=== PATIENT | female | born 1990 | race Caucasian/White ===

== ENCOUNTER → 2023-11-18 11:08 | Outpatient (REF) | payer BC, SELFPAY ==
[2023-11-18 12:15] LABS: % Eosinophils 0.8 % (0-6); % Lymphocytes 22.5 % (20.5-51.1); % Monocytes 9.2 % (1.7-9.3); % Neutrophils 66.5 % (42.2-75.2); Absolute Basophils 0.1 10^3/uL (0-0.2); Absolute Lymphocytes 1.1 10^3/uL (1.2-3.4); Absolute Monocytes 0.5 10^3/uL (0.1-0.6); Absolute Neutrophils 3.3 10^3/uL (1.4-6.5); Hematocrit 35.8 % (37.0-47.0); Mean Corp Hgb Conc. 33.5 g/dL (33.0-37.0); Mean Corpuscular Hgb 31.1 pg (27.0-31.0); Mean Corpuscular Volume 92.7 fL (81.0-99.0); Mean Platelet Volume 9.7 fL (7.4-10.4); Nucleated Red Blood Cells % 0 %; Platelet Count 230 10^3/uL (130-400); Red Blood Cell Count 3.86 10^6/uL (4.20-5.40); Red Cell Dist. Width 12.5 % (11.5-14.5); White Blood Cell Count 4.9 10^3/uL (4.8-10.8)
[2023-11-18 12:37] LABS: ALT (SGPT) 14 U/L (0-35); AST (SGOT) 26 U/L (14-36); Albumin 4.6 g/dl (3.5-5.0); Alkaline Phosphatase 38 U/L (38-126); Blood Urea Nitrogen 17 mg/dl (7-17); Calcium 9.2 mg/dl (8.4-10.2); Carbon Dioxide 26 mmol/L (22-30); Chloride 101 mmol/L (98-107); Glucose 100 mg/dl (70-99); Iron 86 ug/dl (37-170); Potassium 4.2 mmol/L (3.5-5.1); Sodium 132 mmol/L (135-145); Total Bilirubin 0.4 mg/dl (0.2-1.3); Total Cholesterol 208 mg/dl (50-199); Total Protein 7.4 g/dl (6.3-8.2); Triglyceride 49 mg/dl (10-149); Very Low Density Lipoprotein 9 mg/dl (0-30); eGFR > 60.00
[2023-11-18 12:40] LABS: HDL Cholesterol 80 mg/dl; LDL Cholesterol, Calculated 119 mg/dl
[2023-11-18 13:07] LABS: TSH Reflex To Free T4 0.99 uIU/ml (0.47-4.68)
== END ==
LOC: REG 11:08
PROVIDERS: ATTENDING PHYSICIAN Nurse Practitioner Adult Health
DX: R73.01 Impaired fasting glucose (principal); D50.8 Other iron deficiency anemias; Z00.00 Encounter for general adult medical examination without abnormal findings; Z13.220 Encounter for screening for lipoid disorders; Z13.29 Encounter for screening for other suspected endocrine disorder
CPT/HCPCS: 36415; 80053; 80061; 83036; 83540; 84443; 85025

== ENCOUNTER → 2023-11-23 12:20 | Outpatient (REF) | payer BC, SELFPAY ==
[2023-11-23 14:08] LABS: % Basophils 0.7 % (0-2); % Eosinophils 0.5 % (0-6); % Immature Granulocytes 0.2 % (0-0.5); % Lymphocytes 25.8 % (20.5-51.1); % Monocytes 10.2 % (1.7-9.3); % Neutrophils 62.6 % (42.2-75.2); Absolute Lymphocytes 1.4 10^3/uL (1.2-3.4); Absolute Monocytes 0.6 10^3/uL (0.1-0.6); Absolute Neutrophils 3.4 10^3/uL (1.4-6.5); Hematocrit 37.3 % (37.0-47.0); Hemoglobin 12.3 g/dL (12.0-16.0); Mean Corpuscular Hgb 30.9 pg (27.0-31.0); Mean Corpuscular Volume 93.7 fL (81.0-99.0); Mean Platelet Volume 9.8 fL (7.4-10.4); Nucleated Red Blood Cells % 0 %; Platelet Count 260 10^3/uL (130-400); Red Blood Cell Count 3.98 10^6/uL (4.20-5.40); Red Cell Dist. Width 12.5 % (11.5-14.5); White Blood Cell Count 5.5 10^3/uL (4.8-10.8)
[2023-11-23 14:39] LABS: Blood Urea Nitrogen 19 mg/dl (7-17); Calcium 9.5 mg/dl (8.4-10.2); Carbon Dioxide 26 mmol/L (22-30); Chloride 101 mmol/L (98-107); Glucose 80 mg/dl (70-99); Iron 80 ug/dl (37-170); Potassium 4.6 mmol/L (3.5-5.1); Sodium 133 mmol/L (135-145); eGFR > 60.00
[2023-11-23 14:48] LABS: Percent Saturation 20 % (20-50); Total Iron Binding Capacity 387 ug/dl (265-497)
[2023-11-23 15:41] LABS: Ferritin 6.1 ng/ml (6.24-137)
== END ==
LOC: RAD 12:20
PROVIDERS: ATTENDING PHYSICIAN Nurse Practitioner Adult Health
DX: R07.81 Pleurodynia (principal); E87.1 Hypo-osmolality and hyponatremia; Z00.00 Encounter for general adult medical examination without abnormal findings; D50.8 Other iron deficiency anemias
CPT/HCPCS: 36415; 71101; 80048; 82728; 83540; 83550; 85025

== ENCOUNTER → 2023-11-30 | Outpatient (REF) | payer BC, SELFPAY | LOC: DHSLP | PROVIDERS: ATTENDING PHYSICIAN Nurse Practitioner Adult Health | DX: G47.30 Sleep apnea, unspecified (principal); R06.83 Snoring | CPT/HCPCS: 95800 ==

== ENCOUNTER → 2023-12-01 07:12 | Outpatient (REF) | payer BC, SELFPAY | LOC: RAD 07:12 | PROVIDERS: ATTENDING PHYSICIAN Nurse Practitioner Adult Health | DX: R93.89 Abnormal findings on diagnostic imaging of other specified body structures (principal) | CPT/HCPCS: 71046 ==

== ENCOUNTER → 2024-02-19 06:10 | Outpatient (REF) | payer BC, SELFPAY ==
[2024-02-19 07:15] LABS: Blood Urea Nitrogen 19 mg/dl (7-17); Calcium 9.2 mg/dl (8.4-10.2); Carbon Dioxide 24 mmol/L (22-30); Chloride 102 mmol/L (98-107); Glucose 119 mg/dl (70-99); Potassium 3.9 mmol/L (3.5-5.1); Sodium 137 mmol/L (135-145); eGFR > 60.00
== END ==
LOC: REG 06:10
PROVIDERS: ATTENDING PHYSICIAN Nurse Practitioner Adult Health
DX: D50.8 Other iron deficiency anemias (principal); R73.01 Impaired fasting glucose
CPT/HCPCS: 80048

== ENCOUNTER 2024-09-10 21:16 | Inpatient (IN) | payer BC, SELFPAY ==
[2024-09-10 11:54] VITALS: BP 145/89
[2024-09-10 12:20] LABS: % Basophils 0.5 % (0-2); % Eosinophils 0.5 % (0-6); % Immature Granulocytes 0.3 % (0-0.5); % Lymphocytes 28.5 % (20.5-51.1); % Monocytes 11.8 % (1.7-9.3); % Neutrophils 58.4 % (42.2-75.2); Absolute Lymphocytes 1.1 10^3/uL (1.2-3.4); Absolute Monocytes 0.5 10^3/uL (0.1-0.6); Absolute Neutrophils 2.3 10^3/uL (1.4-6.5); Hematocrit 38.6 % (37.0-47.0); Mean Corp Hgb Conc. 33.7 g/dL (33.0-37.0); Mean Corpuscular Hgb 30.7 pg (27.0-31.0); Mean Platelet Volume 9.3 fL (7.4-10.4); Nucleated Red Blood Cells % 0 %; Platelet Count 231 10^3/uL (130-400); Red Blood Cell Count 4.24 10^6/uL (4.20-5.40); Red Cell Dist. Width 12.4 % (11.5-14.5)
[2024-09-10 12:29] LABS: HCG, Serum Qualitative Screen Negative
[2024-09-10 12:36] LABS: ALT (SGPT) 18 U/L (0-35); AST (SGOT) 29 U/L (14-36); Albumin 4.8 g/dl (3.5-5.0); Alkaline Phosphatase 37 U/L (38-126); Blood Urea Nitrogen 16 mg/dl (7-17); Calcium 9.2 mg/dl (8.4-10.2); Carbon Dioxide 24 mmol/L (22-30); Chloride 100 mmol/L (98-107); Glucose 94 mg/dl (70-99); Lipase 106 U/L (23-300); Potassium 3.6 mmol/L (3.5-5.1); Sodium 137 mmol/L (135-145); Total Bilirubin 0.6 mg/dl (0.2-1.3); Total Protein 7.5 g/dl (6.3-8.2); eGFR > 60.00
[2024-09-10 12:45] LABS: Troponin I < 0.012 ng/ml
--- NOTE | 2024-09-10 13:16 | ED.GENMED ---
History of Present Illness
General
Chief Complaint: Abdominal Symptoms
Source: patient
Exam Limitations: none
Time Seen by Provider: 09/10/24 13:12
Nursing documentation reviewed up to this point in time: agreed with
History of Present Illness
History of Present Illness:
34 yr old female presents to the ED with c/o of epigastric pain. Pt reports for the past 4 days she has had nausea and vomiting after eating. She c/o of pain epigastric that radiates to back between shoulder blades. d
Pt denies any fever/chills/body aches, cold symptoms. Patient does report that she does have a history of reflux normally and put herself on omeprazole [id number].
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
She drinks alcohol about once a month , denies smoking.
She denies any shortness of breath chest pain. She is not on control.
Review of Systems
Review of Systems
Allergies reviewed?: Yes
All Other Systems: ROS reviewed and negative except as documented in HPI and ROS
Constitutional: Reports no symptoms; Denies fever, fatigue or chills
ABD/GI: Reports nausea, vomiting and other (epigastric tenderness); Denies diarrhea
Musculoskeletal: Reports no symptoms
Skin: Reports no symptoms
Neurological: Reports no symptoms
Psychiatric: Reports no symptoms
Phy Exam
General Physical Exam
General Presentation: no apparent distress
General age: appears stated age
General Skin: warm and dry
General Habitus: normal
General Mental: alert
General Hydration: appears well hydrated
Gastrointestinal Exam
Gastrointestinal Exam: soft and other (+ epigastric tenderness)
Neurological Exam
Neurological Exam: alert and oriented x3
Musculoskeletal Exam
Musculoskeletal Exam: full ROM
Skin Exam
Skin Exam: normal color and warm/dry
Psychiatric Exam
Psychiatric Exam: normal mood/affect
Course
Orders/Labs/Results
Orders:
Orders
09/10/24 11:52
EKG [Electrocardiogram (*1)] Urgent
Reason for Study: Palpitations
EKG- Treatment ONCE
09/10/24 11:58
Test Result ONCE
09/10/24 12:06
Complete Blood Count/With Diff Urgent
Comprehensive Metabolic Panel Urgent
HCG, Serum Qualitative Screen Urgent
Lipase Urgent
Troponin I Urgent
09/10/24 13:25
COVID-19 Antigen Urgent
Source: Nasal Swab
Influenza A+B Rapid Molecular Urgent
PAULA Source: Nasal Swab
Specimen Description:
09/10/24 13:32
0.9% Sodium Chloride 1000 ml [Nss] 1,000 ml IV BOLUS
Famotidine [Pepcid] 20 mg IV NOW STA
Ondansetron Injectable [Zofran] 4 mg IV NOW STA
09/10/24 13:39
US Abdomen Complete/Upper Urgent
Comment:
Reason For Exam: epigastric pain
09/10/24 15:42
CT Abd/pel W Iv And Oral Contr Urgent
Comment:
Reason For Exam: upper abd pain
Iohexol [Omnipaque] See Protocol PO NOW STA
Abnormal Lab Results
09/10/24
12:06
WBC 4.0 L 10^3/uL
(4.8-10.8)
Absolute Lymphs (auto) 1.1 L 10^3/uL
(1.2-3.4)
Monocytes % 11.8 H %
(1.7-9.3)
Alkaline Phosphatase 37 L U/L
(38-126)
09/10/24 12:06
09/10/24 12:06
Vital Signs
Initial and Last Documented VS:
Initial Vital Signs
Temp Pulse Resp BP Pulse Ox
98.0 F 97 16 145/89 99
09/10/24 11:54 09/10/24 11:54 09/10/24 11:54 09/10/24 11:54 09/10/24 11:54
Last Documented Vital Signs
Temp Pulse Resp BP Pulse Ox
98.0 F 83 18 140/86 99
09/10/24 11:54 09/10/24 17:13 09/10/24 17:13 09/10/24 17:13 09/10/24 17:13
MDM/Problems Addressed
Differential Diagnosis Includes:
Not limited to peptic ulcer, gastritis, GERD, less likely pancreatitis less likely obstruction less likely cholecystitis
MDM/Problems Addressed:
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 She reports pain is epigastric rating to back. She only vomits when eating. CAT scan shows jejunojejunal intussusception w/ in left mid
abdomen . Patient received fluids Pepcid and Zofran here in the ER. Case discussed with surgery Dr. Herrera who does recommend to admit for monitoring for monitoring and he will evaluate tomorrow.
Patient with no further vomiting here in the ER stable vital signs.
Afebrile nml wbc
*Radiology
Radiology exam reviewed: radiology read reviewed
*Pulse Oximetry
Patient hypoxic: no
*Critical Care Note
Total Time (30-74mins, 75-104mins- exclusive of procedures): Not Applicable
Patient Management
Discussion with other providers: Terminal Block Assembler (DR Herrera )
ED Attending Note
-
Portions of this chart may have been created with voice recognition software.� Occasional wrong word or��sound alike� substitutions may have occurred due to the inherent limitations of voice recognition software.
Discharge Plan
Departure
Patient Disposition: Admit
Date of Disposition: 09/10/24
Time of Disposition: 19:37
Admit to: Med/Surg
Admit to doctor: hospitalist
Presentation/result/management discussed w/ accepting MD/DO: Hospitalist
Patient with high blood pressure during this ER visit?: Yes
Condition: Fair
Covid-19: Not Applicable
Discharge Problem:
Intussusception of jejunum
Referrals:
Megha Sweeney CRNP [Family Provider] -
Interventions
Interventions:
*Risk Screen - Suicide Last Done: 09/10/24 11:54
*General Assessment Last Done: 09/10/24 11:54
*Neglect/Abuse Screening Last Done: 09/10/24 11:54
*ED COVID-19 Vaccine History Last Done: 09/10/24 11:54
FR-Egdycr-Poflvnjdxh Assessment Last Done: 09/10/24 13:04
Discharge Date and Time
Print Language: TURKISH
[2024-09-10] MEDS: NSS 1000 IV ×2 (13:50→22:33)
[2024-09-10] MEDS: PEPCID 20 MG IV (14:02)
[2024-09-10] MEDS: ZOFRAN 4 MG IV (14:02)
[2024-09-10 14:14] LABS: COVID-19 Antigen Negative (Negative)
[2024-09-10 14:59] VITALS: BMI 22.3
[2024-09-10] MEDS: OMNIPAQUE 50 ML PO (16:16)
[2024-09-10 17:13] VITALS: BP 140/86
--- NOTE | 2024-09-10 19:59 | HPS.HSE ---
Family Physician
-
Family Physician: RL Eugene
Chief Complaint
-
abdominal pain
History of Present Illness
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 She has had nausea and vomiting
after eating. She denies any fevers or chills.
She drinks alcohol once a month. Denies smoking.
Medical History
Past Medical History
Past Medical History: Reports Other (GERD, anxiety/depression, migraines)
Past Surgical History: Reports None
Social History
Tobacco: Non-smoker
Alcohol: None
Drug: None
Family History
Family History: Not pertinent
Allergies / Home Medications
Allergies reflects when Allergies were last updated in [employer].
Home Medications with original date entered in [employer]
Allergy/Medication List:
Allergies
Allergy/AdvReac Type Severity Reaction Status Date / Time
No Known Allergies Allergy Verified 09/10/24 11:57
Home Medications
calcium carbonate (Tums) 200 mg PO QIDPRN PRN stomach upset 09/10/24
fluoxetine 40 mg capsule 40 mg PO HS 09/10/24
lorazepam 0.5 mg tablet 0.5 mg PO HSPRN PRN sleep 09/10/24
Review of Systems
-
History Source: Patient
A 12 point ROS was completed and negative except as noted: Yes
Constitutional: Reports No Symptoms
EENT: Reports No Symptoms
Respiratory: Reports No Symptoms
Cardiac: Reports No Symptoms
Abdomen/GI: Reports See HPI
: Reports No Symptoms
Musculoskeletal: Reports No Symptoms
Skin: Reports No Symptoms
Neurological: Reports No Symptoms
Endocrine: Reports No Symptoms
Hematologic/Lymphatic: Reports No Symptoms
Psych: Reports No Symptoms
Physical Exam
Vital Signs
Vital Signs
Temp Pulse Resp BP Pulse Ox
98.0 F 83 18 140/86 99
09/10/24 11:54 09/10/24 17:13 09/10/24 17:13 09/10/24 17:13 09/10/24 17:13
Physical Exam
General: Well Developed, Well Nourished and No Apparent Distress
HEENT: NormoCephalic, Moist mucous membranes and Atraumatic
Respiratory: Clear
Cardiac: S1/S2 and Regular Rhythm; No Murmur or Rub
GI: Soft, Non Tender, Non Distended and Normal Bowel Sounds; No Organomegaly
Rectal: Deferred by Provider
Musculoskeletal: No Clubbing, No Cyanosis and No Edema
Skin: No Rash
Neuro: Nonfocal/grossly intact
Laboratory Results
-
09/10/24 12:06
09/10/24 12:06
Laboratory Results
Total Bilirubin 0.6 mg/dl (0.2-1.3) 09/10/24 12:06
AST 29 U/L (14-36) 09/10/24 12:06
ALT 18 U/L (0-35) 09/10/24 12:06
Alkaline Phosphatase 37 U/L (38-126) L 09/10/24 12:06
Troponin I < 0.012 ng/ml 09/10/24 12:06
Lipase 106 U/L (23-300) 09/10/24 12:06
Data Reviewed
-
Lab Data: Labs Reviewed by me
Old Records: Reviewed
Impression/Plan
-
IMPRESSION:
PLAN:
# Jejunojejunal intussusception
-CT abdomen pelvis shows jejunojejunal intussusception within the left mid abdomen without obstruction or discrete lead point
-Abdominal ultrasound normal
-N.p.o.
-IV fluids
-Dilaudid, Zofran
-General Surgery consulted
GERD
Anxiety/depression
-Hold fluoxetine, Ativan
Full code
DVT prophylaxis�SCDs
N.p.o.
[2024-09-10 22:13] VITALS: BMI 22.3
[2024-09-10 22:23] VITALS: BP 122/71
[2024-09-11] VITALS (14 sets, daily range): BP systolic 94–121; BP diastolic 56–83
[2024-09-11 07:57] LABS: Hematocrit 36.2 % (37.0-47.0); Hemoglobin 12.1 g/dL (12.0-16.0); Mean Corp Hgb Conc. 33.4 g/dL (33.0-37.0); Mean Corpuscular Hgb 30.6 pg (27.0-31.0); Mean Corpuscular Volume 91.6 fL (81.0-99.0); Mean Platelet Volume 9.5 fL (7.4-10.4); Platelet Count 209 10^3/uL (130-400); Red Blood Cell Count 3.95 10^6/uL (4.20-5.40); Red Cell Dist. Width 12.1 % (11.5-14.5); White Blood Cell Count 4.5 10^3/uL (4.8-10.8)
[2024-09-11 08:18] LABS: ALT (SGPT) 14 U/L (0-35); AST (SGOT) 23 U/L (14-36); Alkaline Phosphatase 35 U/L (38-126); Blood Urea Nitrogen 12 mg/dl (7-17); Calcium 8.8 mg/dl (8.4-10.2); Carbon Dioxide 27 mmol/L (22-30); Chloride 104 mmol/L (98-107); Estimated Creatinine Clearance 94 ml/min; Glucose 75 mg/dl (70-99); Potassium 4.2 mmol/L (3.5-5.1); Sodium 139 mmol/L (135-145); Total Bilirubin 0.5 mg/dl (0.2-1.3); Total Protein 6.4 g/dl (6.3-8.2); eGFR > 60.00
[2024-09-11 08:42] LABS: Absolute Neutrophils -Man Diff 2.2 10^3/uL (1.4-6.5); Band Neutrophils 0 % (0-3); Segmented Neutrophils 51 % (42-75)
[2024-09-11] MEDS: NSS 1000 IV ×2 (08:42→21:49)
[2024-09-11 08:43] LABS: Atypical Lymphocytes 6 %; Eosinophils 1 % (0-6); Lymphocytes 32 % (20-51); Monocytes 10 % (2-9); Normal RBC Morphology Yes; Platelets Checked Yes; Total Cells Counted 100
--- NOTE | 2024-09-11 09:06 | CON.GS ---
Consultation
-
Requesting Provider: Purvi
Performing Provider: Luma
Reason for Consultation: Abd pain
Medical History
-
Chief Complaint: Abd pain
History of Present Illness:
34F with second episode of epigastric pain that is episodic, with radiation to back and a/w n/v. She reports several days of this pain, beginning a week ago with some improvement over the wekend but recurring pain after eating pizza. Pain came back
abut an hour after eating. Pain is intermittent. Denies f/c. Denies changes to stool/urine. Prior similar episode about 1 year ago. US at that time showed sludge.
Past Medical History
Past Medical History: GERD and Psychiatric
Past Surgical History: Reviewed & Noncontributory
Social History
Tobacco: Non-Smoker
Alcohol: None
Drug: None
Personal: Other (engaged)
Living: With Family
Employment: Employed
Family History
Family History: Reviewed & Noncontributory
Allergies / Home Medications
Allergy/AdvReac Type Severity Reaction Status Date / Time
No Known Allergies Allergy Verified 09/10/24 11:57
�Medication �Instructions �Recorded �Confirmed �Type
calcium carbonate (Tums) 200 mg PO QIDPRN PRN stomach upset 09/10/24 09/10/24 History
fluoxetine 40 mg capsule 40 mg PO HS 09/10/24 09/10/24 History
lorazepam 0.5 mg tablet 0.5 mg PO HSPRN PRN sleep 09/10/24 09/10/24 History
Review of Systems
-
A 10 point review of systems was completed, and was negative except as per HPI.
Physical Exam
Vital Signs
Temp Pulse Resp BP Pulse Ox
98 F 85 16 106/68 97
09/11/24 08:01 09/11/24 08:01 09/11/24 08:01 09/11/24 08:01 09/11/24 08:01
09/10/24 09/11/24 09/12/24
06:59 06:59 06:59
Actual Weight 62.55 kg
Body Mass Index (BMI) 22.3
Lab Results
09/11/24 06:28
09/11/24 06:28
WBC 4.5 10^3/uL (4.8-10.8) L 09/11/24 06:28
Hgb 12.1 g/dL (12.0-16.0) 09/11/24:28
Hct 36.2 % (37.0-47.0) L 09/11/24:
Plt Count 209 10^3/uL (130-400) 09/11/24:28
Abs Immat Gran (auto) 0.0 10^3/uL (0-0.05) 09/10/24 12:06
Neutrophils % 58.4 % (42.2-75.2) 09/10/24 12:06
Physical Exam
General: Well Developed, Well Nourished and No Apparent Distress
HEENT: Normocephalic and Anicteric
GI: Soft, Non Tender and Non Distended
Skin: Warm and Dry
Neuro: AO x 3
Psych: Calm
Data Reviewed
-
CT Scan: Image Personally Visualized and interpreted, Report Reviewed by me and Discussed with Patient
Ultrasound: Image Personally Visualized and interpreted, Report Reviewed by me and Discussed with Patient
Labs: Labs Reviewed by me and Discussed with Patient
Old Records: Reviewed
Assessment / Plan
-
34F with biliary colic
AFVSS, symptoms have resolved
Labs unremarkable
CT with sb intussusception likely an incidental findig
US without biliary abnormality, pt reports a prior US with sludge
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 I recommended CCY. Risks, benefits, complications and alternatives were discussed including but not limited to bleeding, infection, injury to intra-abdominal
structures, need for open surgery, need for further procedures. She is reluctant to proceed with surgery after a bad experience at OSH 2 years ago during an episode of pre-eclampsia when she received Mg and became unresponsive.
Discussed low fat diet and outpatient elective CCY if she wishes.
Plan for PO challenge and home if tolerates.
[2024-09-11] MEDS: BENADRYL 50 MG PO (10:24)
[2024-09-11] MEDS: ATIVAN 1 MG PO (10:24)
--- NOTE | 2024-09-11 11:28 | W.PN.UPDATE ---
Update Note
Progress Note Update
Pt changed her mind. She would like to proceed with CCY today,. She has not eaten or drank anything. Proceed to OR when room is available. Transfer to Surgery service.
--- NOTE | 2024-09-11 12:10 | OR.RPT ---
Operative Report
Operative Report
Primary Surgeon: Purvi
Assisting: Ingrid GALLOWAY
Pre-op Diagnosis: Biliary colic
Post-op Diagnosis: Chronic calculous cholecystitis
Procedure Performed: Robotic cholecystectomy
Anesthesia Type: GETA
Specimen / Cultures: Gallbladder
Estimated Blood Loss: 1cc
Complications: None immediate
Operative Findings: Softly distended gallbladder with mild wall thickening and fibrosis
Date of Surgery:� 09/11/24
Indications: This 34F developed biliary colic. Ultrasound imaging showed a small amount of sludge in the gallbladder. Laparoscopic cholecystectomy with robotic assist was elected.
Description of procedure: The patient was placed on the operating table in the supine position. General anesthesia was induced. A time-out was completed verifying correct patient, procedure, site, positioning, and special equipment prior to
beginning this procedure. An orogastric tube was placed. The abdomen was prepped and draped in the usual sterile fashion. A stab incision was made in left upper quadrant and the Veress needle was inserted. Proper position was confirmed by aspiration
and saline meniscus test. The abdomen was insufflated with carbon dioxide to a pressure of 12mmHg. The patient tolerated insufflation well.
A 8mm trocar was then inserted above the umbilicus through the existing hernia defect. The laparoscope was inserted and the abdomen inspected. No injuries from initial trocar placement or Veress needle insertion were noted. Additional 8mm trocars
were then inserted in the following locations: two in the right lower quadrant and to the left of the umbilicus and just above. The abdomen was inspected and no abnormalities were found. The table was placed in the reverse Trendelenburg position
with the right side up. The dome of the gallbladder was grasped with an atraumatic grasper and retracted over the dome of the liver. The infundibulum was then grasped with an atraumatic grasper and retracted toward the right lower quadrant. This
maneuver exposed Calot�s triangle. The mildly fibrotic visceral peritoneum overlying the gallbladder infundibulum was then incised and the cystic duct and cystic artery identified and circumferentially dissected so that a clear view of the liver was
achieved through a window between the cystic duct an cystic artery. At this time, the only two structures going into the gallbladder were the cystic artery and cystic duct. The common duct was identified with ICG and protected.
The cystic duct was then doubly clipped and divided. The cystic artery was controlled with bipolar and divided. The gallbladder was then dissected from its peritoneal attachments by electrocautery. The posterior plane was mildly fibrotic. The
gallbladder was removed using an endoscopic retrieval bag placed through the umbilical port. The gallbladder was passed off the table as a specimen. The gallbladder fossa was closely inspected. There was no evidence of bleeding from the gallbladder
fossa or cystic artery or leakage of the bile from the cystic duct stump. The umbilical trocar site was closed at the fascial level with 2-0 PDS. Secondary trocars were removed under direct vision and noted to be hemostatic. The abdomen was allowed
to collapse. The skin was closed with subcuticular sutures of 4-0 monocryl and topical skin adhesive. The orogastric tube was removed.
The patient tolerated the procedure well and was taken to the postanesthesia care unit in stable condition.
--- NOTE | 2024-09-11 12:12 | W.DS.TRANS ---
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
-
Discharge Instructions:
Discharge Diagnosis/Procedures Robotic cholecystectomy
Diet No restrictions
Activity No strenuous activity
Driving Restrictions No driving for 24 hours
Bathing Restrictions OK to Shower
Wound Care Allow skin glue to flake off on its own
Instructions: Cholecystectomy - Discharge instructions
Stand-Alone Forms:
Changes to Home Medications: No
Discharge Medications:
DC Medications w/original date entered in [employer]
calcium carbonate (Tums) 200 mg PO QIDPRN PRN stomach upset 09/10/24
fluoxetine 40 mg capsule 40 mg PO HS 09/10/24
lorazepam 0.5 mg tablet 0.5 mg PO HSPRN PRN sleep 09/10/24
oxycodone 5 mg tablet 5 - 10 mg (1 - 2 x 5 mg) PO Q4HPRN PRN moderate to severe pain #20 tabs 09/11/24
Home Medication Changes
Pending Results: No
[2024-09-11] MEDS: ZOFRAN 4 MG IV (12:52)
[2024-09-11] MEDS: DILAUDID 0.5 MG IV ×4 (12:53→21:49)
--- NOTE | 2024-09-11 15:51 | CM ---
Patient seen at bedside with mother in law to be also present. Patient stated that she lives with her fiance who is sick at this time. Patient stated that she would be able to be in the same home and not be exposed to fiarik's illness. Patient has a
ride for when physician indicates that she can go and she uses [facility], [facility] and the [facility] in [place]. Patient indicated that she has no needs at this time for VN or DME. CM will continue to follow for discharge
planning needs.
Plan; home with no needs at this time
--- NOTE | 2024-09-11 17:30 | PTCARENOTE ---
Pt beginning to eat Regular diet as ordered. Pt still with significant abdominal pain post-op requiring IV pain medication as ordered PRN. Will keep pt overnight due to uncontrolled pain.
[2024-09-11] MEDS: MYLICON 80 MG PO (22:03)
[2024-09-12 03:01] VITALS: BP 107/66
[2024-09-12] MEDS: NSS 1000 IV (06:05)
[2024-09-12 07:47] VITALS: BP 99/67
--- NOTE | 2024-09-12 08:18 | W.PN.SURGUPD ---
Surgical Update
Surgical Update
Patient seen and examined.
Reports postoperative incisional pain but controlled.
Tolerated p.o. intake, no nausea today.
AFVSS
ABD: Soft, nondistended, mild tenderness palpation at incision sites. Incision sites with glue dressings.
A/P: 34-year-old female POD #1 status post RAL cholecystectomy
DC home, instructions reviewed
--- NOTE | 2024-09-12 08:19 | W.DS.TRANS ---
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
-
Discharge Instructions:
Discharge Diagnosis/Procedures Robotic cholecystectomy
Diet Low Fat,As tolerated
Activity No strenuous activity
Driving Restrictions No driving for 24 hours
Bathing Restrictions OK to Shower
Wound Care Allow skin glue to flake off on its own
Instructions: Cholecystectomy - Discharge instructions
Stand-Alone Forms:
Changes to Home Medications: No
Discharge Medications:
DC Medications w/original date entered in [employer]
calcium carbonate (Tums) 200 mg PO QIDPRN PRN stomach upset 09/10/24
fluoxetine 40 mg capsule 40 mg PO HS 09/10/24
lorazepam 0.5 mg tablet 0.5 mg PO HSPRN PRN sleep 09/10/24
oxycodone 5 mg tablet 5 - 10 mg (1 - 2 x 5 mg) PO Q4HPRN PRN moderate to severe pain #20 tabs 09/11/24
Home Medication Changes
Pending Results: No
[2024-09-12] MEDS: DILAUDID 0.5 MG IV (11:00)
[2024-09-12] MEDS: MYLICON 80 MG PO (11:01)
[2024-09-12] MEDS: ZOFRAN 4 MG IV (11:01)
[2024-09-12 12:28] VITALS: BP 130/88
--- NOTE | 2024-09-12 13:29 | PN.CDI ---
CDI
- -
CDI:
Physician Documentation Request
Admit Date: 09/10/24 21:16
Dear Doctor Purvi,
The diagnosis of Jejunojejunal intussusception was documented in ED record and on H&P but is not consistently noted in subsequent documentation.
Please clarify the following:
____ - Jejunojejunal intussusception was present.
____ - Jejunojejunal intussusception was ruled out
____ - Other
Use of terms such as suspected, likely, concern for, or probable (associated with a specific diagnosis that is being evaluated, monitored, or treated as if it exists) are acceptable and can be coded in the inpatient setting, when documented at the
time of discharge.
Thank you,
Virginie Swift RN, BSN
CDI Specialist
tiger text
Please use your independent medical judgment in providing your response.
== END 2024-09-12 12:48 | disposition home or self-care (01) | DRG 418 ==
LOC: 2 NORTH 21:16
PROVIDERS: Emergency Medicine; Nurse Practitioner; ADMITTING PHYSICIAN Hospitalist; ATTENDING PHYSICIAN Surgery; EMERGENCY PHYSICIAN Student in an Organized Health Care Education/Training Program; FAMILY PHYSICIAN Nurse Practitioner Adult Health
PROC: 0FT44ZZ Resection of Gallbladder, Percutaneous Endoscopic Approach (ICD-10-PCS; 2024-09-11)
PROC: 8E0W4CZ Robotic Assisted Procedure of Trunk Region, Percutaneous Endoscopic Approach (ICD-10-PCS; 2024-09-11)
DX: K80.12 Calculus of gallbladder with acute and chronic cholecystitis without obstruction (principal); K56.1 Intussusception; K21.9 Gastro-esophageal reflux disease without esophagitis; F41.9 Anxiety disorder, unspecified; F32.A Depression, unspecified; G43.909 Migraine, unspecified, not intractable, without status migrainosus; Z11.52 Encounter for screening for COVID-19
CPT/HCPCS: 88304; 74177; 76700; 80053; 83690; 84484; 84703; 85025; 87502; 87811; 93005; 96361; 96374; 96375; 99285; Q9967

== ENCOUNTER 2024-09-27 19:31 | Emergency (ER) | payer BC, SELFPAY ==
[2024-09-27 19:32] VITALS: BMI 22.5
[2024-09-27 19:33] VITALS: BP 156/96
[2024-09-27 20:16] LABS: % Basophils 1.1 % (0-2); % Eosinophils 1.2 % (0-6); % Immature Granulocytes 0.2 % (0-0.5); % Lymphocytes 19.8 % (20.5-51.1); % Monocytes 8.8 % (1.7-9.3); % Neutrophils 68.9 % (42.2-75.2); Absolute Basophils 0.1 10^3/uL (0-0.2); Absolute Eosinophils 0.1 10^3/uL (0-0.7); Absolute Lymphocytes 1.3 10^3/uL (1.2-3.4); Absolute Monocytes 0.6 10^3/uL (0.1-0.6); Absolute Neutrophils 4.6 10^3/uL (1.4-6.5); Hematocrit 36.6 % (37.0-47.0); Hemoglobin 12.5 g/dL (12.0-16.0); Mean Corp Hgb Conc. 34.2 g/dL (33.0-37.0); Mean Corpuscular Hgb 30.6 pg (27.0-31.0); Mean Corpuscular Volume 89.5 fL (81.0-99.0); Mean Platelet Volume 8.9 fL (7.4-10.4); Nucleated Red Blood Cells % 0 %; Platelet Count 395 10^3/uL (130-400); Red Blood Cell Count 4.09 10^6/uL (4.20-5.40); Red Cell Dist. Width 12.5 % (11.5-14.5); White Blood Cell Count 6.6 10^3/uL (4.8-10.8)
[2024-09-27 20:30] LABS: HCG, Serum Qualitative Screen Negative
[2024-09-27 20:32] LABS: ALT (SGPT) 26 U/L (0-35); AST (SGOT) 49 U/L (14-36); Albumin 5.1 g/dl (3.5-5.0); Alkaline Phosphatase 45 U/L (38-126); Blood Urea Nitrogen 12 mg/dl (7-17); Calcium 9.6 mg/dl (8.4-10.2); Carbon Dioxide 21 mmol/L (22-30); Chloride 102 mmol/L (98-107); Glucose 91 mg/dl (70-99); Potassium 3.3 mmol/L (3.5-5.1); Sodium 138 mmol/L (135-145); Total Bilirubin 0.6 mg/dl (0.2-1.3); Total Protein 7.7 g/dl (6.3-8.2); eGFR > 60.00
[2024-09-27 20:40] LABS: Troponin I < 0.012 ng/ml
[2024-09-27 23:24] LABS: Troponin I < 0.012 ng/ml
[2024-09-27 23:44] VITALS: BP 121/86
[2024-09-28] VITALS: BP 114/78
--- NOTE | 2024-09-28 00:55 | ED.GENMED ---
History of Present Illness
General
Chief Complaint: Chest Pain
Time Seen by Provider: 09/27/24 23:48
History of Present Illness
History of Present Illness:
34-year-old female with history of anxiety presenting to the emergency department for acute onset of midsternal chest pain. Patient reports she was out to dinner. They were at a [place] restaurant and she was eating, had acute onset of severe
midsternal chest pain. Symptoms lasted about 30 minutes and she decided to come to the hospital. Denies known personal history of cardiac disease. Does note some family history. Reports recent cholecystectomy 2 weeks ago for acute cholecystitis,
without complications. Denies any difficulty breathing. Denies fever. Denies any abdominal pain. Symptoms have improved since coming to the hospital. Denies any history of blood clots, denies any OCP usage. Denies additional acute medical
complaints
Phy Exam
Physical Exam
Physical Exam:
General: Well-appearing, no clinical signs of dehydration, nontoxic and in no acute distress
HEENT: protecting airway
Neck: appears supple
CV: Tachycardic, regular rhythm
Resp: No accessory muscle use, no increased work of breathing, lungs clear to auscultation bilaterally
Abd: Soft and non-distended, no tenderness to palpation, normal bowel sounds
Extremities: No deformities, no swelling, no erythema
Neuro: alert, no focal neurologic deficit
: deferred
Rectal: deferred
Psych: Normal affect
Skin: Intact
Scores
Heart Score for Chest Pain Patients
STEMI patient?: No
History: Slightly or Non-Suspicious
ECG: Normal
Age: </= 45 years
Risk Factors: 1 or 2 Risk Factors
Troponin: </= Normal Limit
Heart Score for Chest Pain Patients: 1
Heart Score Risk: 2.5% MACE over next 6 weeks
Course
Orders/Labs/Results
Orders:
Orders
09/27/24 19:32
Electrocardiogram (*1) Urgent
Reason for Study: Chest Pain
EKG- Treatment ONCE
Test Result ONCE
09/27/24 20:00
Complete Blood Count/With Diff Urgent
Comprehensive Metabolic Panel Urgent
HCG, Serum Qualitative Screen Urgent
Troponin I Urgent
09/27/24 22:52
Troponin I Urgent
09/27/24 23:00
Electrocardiogram (*1) Urgent
Reason for Study: Chest Pain
09/28/24 00:25
D-Dimer Urgent
Abnormal Lab Results
09/27/24
20:00
RBC 4.09 L 10^6/uL
(4.20-5.40)
Hct 36.6 L %
(37.0-47.0)
Lymphocytes % 19.8 L %
(20.5-51.1)
Potassium 3.3 L mmol/L
(3.5-5.1)
Carbon Dioxide 21 L mmol/L
(22-30)
AST 49 H U/L
(14-36)
Albumin 5.1 H g/dl
(3.5-5.0)
09/27/24 20:00
09/27/24 20:00
Vital Signs
Initial and Last Documented VS:
Initial Vital Signs
Temp Pulse BP Pulse Ox
97.8 F 150 156/96 98
09/27/24 19:33 09/27/24 19:33 09/27/24 19:33 09/27/24 19:33
Last Documented Vital Signs
Temp Pulse Resp BP Pulse Ox
97.8 F 89 18 114/78 98
09/27/24 19:33 09/28/24 00:30 09/28/24 00:30 09/28/24 00:00 09/28/24 00:30
MDM/Problems Addressed
MDM/Problems Addressed:
34-year-old female with history of anxiety presenting for chest pain. Vital signs are significant for tachycardia.
On exam patient is resting comfortably, no acute distress or discomfort with unremarkable cardiac and pulmonary exam. Patient reports symptoms started while she was out at dinner at a [place] restaurant while eating food. Do suspect possible
gastric component to symptoms, indigestion. Patient had prolonged wait in the waiting room, with workup started prior to my assessment. Patient with EKG, nonischemic, however tachycardic. On repeat EKG, heart rate has normalized without any
intervention. Patient with minimal cardiac risk factors without present concern for ACS. In addition to troponins, undetectable. Again without concern for ACS. Additional labs are unremarkable. Abdomen is soft and nondistended. Patient's
incisions from recent surgery are healing appropriately. Given tachycardia and recent surgery, cannot safely rule out PE, cannot satisfy PERC rule. Will send D-dimer.
01:00 - D-dimer within normal limits. Patient remains stable. At this time feel that she is stable for discharge with continued suspicion for indigestion. If symptoms return or are persisting, advising outpatient cardiology follow-up. Return
precautions discussed and patient verbalized understanding
*EKG
Interpreted by ED Provider?: Yes
EKG Intrepretation Date: 09/28/24
EKG Intrepretation Time: 00:58
Interpretation: normal
Heart Rate: 131
Rate: normal
Rhythm: sinus
[place]: normal axis
Interval: normal interval
QRS Pattern: normal QRS
Ischemia: no ischemia
*Critical Care Note
Total Time (30-74mins, 75-104mins- exclusive of procedures): Not Applicable
ED Attending Note
-
Portions of this chart may have been created with voice recognition software.� Occasional wrong word or��sound alike� substitutions may have occurred due to the inherent limitations of voice recognition software.
Discharge Plan
Departure
Prescriptions:
No Action
fluoxetine 40 mg Capsule
40 mg PO HS
lorazepam 0.5 mg Tablet
0.5 mg PO HSPRN PRN (Reason: sleep)
calcium carbonate [Tums] 200 mg calcium (500 mg) Tablet,Chewable
200 mg PO QIDPRN PRN (Reason: stomach upset)
oxycodone 5 mg tablet
5 - 10 mg PO Q4HPRN PRN (Reason: moderate to severe pain) Qty: 20 0RF
Referrals:
UNKNOWN - PT DOES,NOT KNOW [Family Provider] -
Interventions
Interventions:
*Risk Screen - Suicide Last Done: 09/27/24 19:37
*General Assessment Last Done: 09/27/24 19:38
*Neglect/Abuse Screening Last Done: 09/27/24 19:37
ED- Fall Risk Assessment Last Done: 09/27/24 23:49
ED- Cardiac Assessment Last Done: 09/27/24 23:49
Discharge Date and Time
Print Language: ANGOLAN
== END 2024-09-28 01:11 | disposition home or self-care (01) ==
LOC: EMR 19:31
PROVIDERS: Emergency Medicine; EMERGENCY PHYSICIAN Student in an Organized Health Care Education/Training Program
DX: R07.89 Other chest pain (principal); F41.9 Anxiety disorder, unspecified; Z90.49 Acquired absence of other specified parts of digestive tract
CPT/HCPCS: 99283; 80053; 84484; 84703; 85025; 85379; 93005

== ENCOUNTER → 2024-10-08 12:54 | Outpatient (REF) | payer BC, SELFPAY | LOC: PAVMRI 12:54 | PROVIDERS: ATTENDING PHYSICIAN Nurse Practitioner Adult Health | DX: R51.9 Headache, unspecified (principal); R90.89 Other abnormal findings on diagnostic imaging of central nervous system | CPT/HCPCS: 70553; 72141; A9575 ==

== ENCOUNTER → 2024-10-21 14:51 | Outpatient (REF) | payer BC, SELFPAY | LOC: RCS 14:51 | PROVIDERS: ATTENDING PHYSICIAN Internal Medicine Cardiovascular Disease; FAMILY PHYSICIAN Nurse Practitioner Adult Health | DX: R00.2 Palpitations (principal); R07.9 Chest pain, unspecified | CPT/HCPCS: 93306 ==

== ENCOUNTER → 2024-10-23 11:31 | Outpatient (REF) | payer BC, SELFPAY | LOC: HWRAD 11:31 | PROVIDERS: ATTENDING PHYSICIAN Nurse Practitioner Adult Health | DX: E04.1 Nontoxic single thyroid nodule (principal) | CPT/HCPCS: 76536 ==

== ENCOUNTER → 2024-11-20 12:31 | Outpatient (REF) | payer BC, SELFPAY ==
[2024-11-20 12:56] VITALS: BP 109/78; BP_SYST 84
== END ==
LOC: RADI 12:31
PROVIDERS: ATTENDING PHYSICIAN Nurse Practitioner Adult Health
DX: E04.2 Nontoxic multinodular goiter (principal)
CPT/HCPCS: 88173; 10005; 10006

== ENCOUNTER → 2024-12-04 07:21 | Outpatient (REF) | payer BC, SELFPAY | LOC: MRI 3T 07:21 | PROVIDERS: ATTENDING PHYSICIAN Nurse Practitioner Adult Health | DX: M50.30 Other cervical disc degeneration, unspecified cervical region (principal); E04.1 Nontoxic single thyroid nodule | CPT/HCPCS: 72156; A9575 ==

== ENCOUNTER 2025-01-07 06:04 | Inpatient (IN) | payer BC, SELFPAY ==
[2024-12-27 13:33] VITALS: BMI 22.6
[2024-12-27 14:55] LABS: Hematocrit 34.6 % (37.0-47.0); Hemoglobin 11.7 g/dL (12.0-16.0); Mean Corp Hgb Conc. 33.8 g/dL (33.0-37.0); Mean Corpuscular Hgb 30.8 pg (27.0-31.0); Mean Corpuscular Volume 91.1 fL (81.0-99.0); Mean Platelet Volume 9.8 fL (7.4-10.4); Platelet Count 289 10^3/uL (130-400); Red Cell Dist. Width 12.6 % (11.5-14.5); White Blood Cell Count 4.7 10^3/uL (4.8-10.8)
[2024-12-27 15:02] LABS: INR 0.97; PT 13.2 Sec (11.4-14.6)
[2024-12-27 15:03] LABS: APTT 26.5 Sec (23.4-35.0)
[2024-12-27 15:19] LABS: ALT (SGPT) 12 U/L (0-35); AST (SGOT) 22 U/L (14-36); Albumin 4.6 g/dl (3.5-5.0); Alkaline Phosphatase 32 U/L (38-126); Blood Urea Nitrogen 17 mg/dl (7-17); Calcium 9.3 mg/dl (8.4-10.2); Carbon Dioxide 29 mmol/L (22-30); Chloride 103 mmol/L (98-107); Estimated Creatinine Clearance 94 ml/min; Glucose 89 mg/dl (70-99); Potassium 4.2 mmol/L (3.5-5.1); Sodium 138 mmol/L (135-145); Total Bilirubin 0.5 mg/dl (0.2-1.3); Total Protein 7.2 g/dl (6.3-8.2); eGFR > 60.00
[2025-01-07] VITALS (8 sets, daily range): BP systolic 108–124; BP diastolic 70–90; BMI 22.6
[2025-01-07] MEDS: TYLENOL 1000 MG PO (06:26)
[2025-01-07] MEDS: HEPARIN 5000 UNITS SC (06:26)
[2025-01-07] MEDS: NEURONTIN 300 MG PO (06:27)
[2025-01-07] MEDS: NORMOSOL-R/PLASMALYTE-A 1000 IV (06:33)
--- NOTE | 2025-01-07 09:01 | OR.RPT ---
Operative Report
Operative Report
DATE OF OPERATION: January 07, 2025
PREOPERATIVE DIAGNOSIS: Thyroid Cancer - C73
POSTOPERATIVE DIAGNOSIS: Same
SURGEON: Avery Boyd M.D.
OPERATION: Left Thyroidectomy Full Neck Dissection - 46773
ANESTHESIA: GET
ESTIMATED BLOOD LOSS: 2 cc
DRAINS: None
SPECIMEN: total left thyroid lobe and isthmus and left level 6 paratracheal tissue containing lymph nodes
FINDINGS: Left thyroid tumor with left level 6 lymphadenopathy
COMPLICATIONS: None
PROCEDURE:
The patient was taken to the operating room and placed in the usual supine position. After adequate general endotracheal anesthesia was established, the patient�s neck was extended, prepped, and draped in the typical sterile fashion. A 4 cm
transcervical incision was made two fingerbreadths above the sternal notch. The skin incision was made with the #15 blade, which was taken through the skin into the subcutaneous tissue. The underlying platysma muscle was divided, and subplatysmal
flaps were created superiorly to the thyroid cartilage and inferiorly to the sternal notch. Strap muscles were identified and at the midline.
Attention was turned to the patient�s left thyroid lobe. The left thyroid lobe was mobilized medially. During this process, the left middle thyroid vein and inferior thyroid artery were dissected and ligated with Ligasure. Next, the left superior
pole was taken down by dissecting and transecting the superior pole vessels with a Ligasure. The left thyroid lobe was mobilized medially. During this process, the left recurrent laryngeal nerve was identified and preserved throughout its entire
course. The left superior and inferior parathyroid glands were identified and preserved. The left thyroid lobe with isthmus was resected off the trachea and sent to the pathology department.
At this time, the left selective level 6 neck dissection was performed. The tissue between the left carotid artery to the trachea into the anterior mediastinum was carefully dissected. The previously identified recurrent laryngeal nerve and
parathyroid glands were preserved. The tissue was removed and sent to the pathology department.
After obtaining adequate hemostasis, the strap muscle was approximated with #3-0 Vicryl in a running fashion, and platysma muscles were reapproximated with #3-0 Vicryl in an interrupted fashion, and the skin was approximated with #4-0 Monocryl in a
running subcuticular fashion. Steri-strips and sterile dressings were placed. The patient tolerated the procedure well. The final instrument, needle, and sponge counts were correct.
[2025-01-07] MEDS: DILAUDID 0.5 MG IV ×2 (09:17→09:32)
== END 2025-01-07 11:25 | disposition home or self-care (01) | DRG 627 ==
LOC: AMOS 06:04
PROVIDERS: ADMITTING PHYSICIAN Surgery; FAMILY PHYSICIAN Nurse Practitioner Adult Health
PROC: 0GBJ0ZX Excision of Thyroid Gland Isthmus, Open Approach, Diagnostic (ICD-10-PCS; 2025-01-07)
PROC: 0GBG0ZX Excision of Left Thyroid Gland Lobe, Open Approach, Diagnostic (ICD-10-PCS; 2025-01-07)
PROC: 07T20ZZ Resection of Left Neck Lymphatic, Open Approach (ICD-10-PCS; 2025-01-07)
DX: C73 Malignant neoplasm of thyroid gland (principal)
CPT/HCPCS: 88307; 36415; 80053; 85027; 85610; 85730; 93005; C1776

== ENCOUNTER → 2025-02-18 23:29 | Outpatient (REF) | payer BC, SELFPAY ==
[2025-02-19 04:51] LABS: Hematocrit 33.3 % (37.0-47.0); Hemoglobin 11.1 g/dL (12.0-16.0); Mean Corp Hgb Conc. 33.3 g/dL (33.0-37.0); Mean Corpuscular Volume 92.0 fL (81.0-99.0); Nucleated Red Blood Cells % 0 %; Platelet Count 256 10^3/uL (130-400); Red Cell Dist. Width 12.7 % (11.5-14.5)
[2025-02-19 05:00] LABS: ALT (SGPT) 11 U/L (0-35); AST (SGOT) 21 U/L (14-36); Albumin 4.6 g/dl (3.5-5.0); Alkaline Phosphatase 35 U/L (38-126); Blood Urea Nitrogen 20 mg/dl (7-17); Calcium 9.0 mg/dl (8.4-10.2); Carbon Dioxide 26 mmol/L (22-30); Chloride 105 mmol/L (98-107); Glucose 92 mg/dl (70-99); HDL Cholesterol 65 mg/dl; LDL Cholesterol, Calculated 113 mg/dl; Potassium 3.9 mmol/L (3.5-5.1); Sodium 137 mmol/L (135-145); Total Protein 7.1 g/dl (6.3-8.2); Very Low Density Lipoprotein 16 mg/dl (0-30); eGFR > 60.00
== END ==
LOC: LAB 23:29
PROVIDERS: ATTENDING PHYSICIAN Nurse Practitioner Adult Health
DX: Z13.29 Encounter for screening for other suspected endocrine disorder (principal)
CPT/HCPCS: 80053; 80061; 84439; 84443; 85025

== ENCOUNTER → 2025-02-24 17:27 | Outpatient (REF) | payer BC, SELFPAY | LOC: RAD 17:27 | PROVIDERS: ATTENDING PHYSICIAN Nurse Practitioner Adult Health | DX: M25.551 Pain in right hip (principal) | CPT/HCPCS: 73502 ==